=== PATIENT | female | born 1955 | race Caucasian/White ===

== ENCOUNTER → 2025-01-19 12:54 | Outpatient (REF) | payer MEDICARE, SELFPAY | LOC: HWRCS 12:54 | PROVIDERS: ATTENDING PHYSICIAN Internal Medicine Cardiovascular Disease; FAMILY PHYSICIAN Physician Assistant | DX: R94.31 Abnormal electrocardiogram [ECG] [EKG] (principal); I35.8 Other nonrheumatic aortic valve disorders | CPT/HCPCS: 93306 ==